=== PATIENT | male | born 1945 | race Caucasian/White ===

== ENCOUNTER 2017-04-03 19:39 | Emergency (ER) | payer MEDICARE ==
[2017-04-03] MEDS ORDERED: Sodium Chloride 0.9% 1,000 ML IV ONE (21:05)
[2017-04-03 21:25] LABS: BASO # 0.1 K/uL (0.0-0.2); BASO % 0.7 % (0.0-2.0); EOS # 0.5 K/uL (0.0-0.7); EOS % 6.6 % (0.0-4.0); HEMATOCRIT 41.1 % (35.0-51.0); LYMPH # 1.8 K/uL (1.0-4.3); LYMPH % 25.2 % (20.0-40.0); MEAN CELL VOLUME 85.2 fL (80.0-94.0); MEAN CORPUSCULAR HEMOGLOBIN 28.1 pg (27.0-31.0); MEAN PLATELET VOLUME 9.1 fL (7.2-11.7); MONO # 0.5 K/uL (0.0-0.8); MONO % 6.8 % (0.0-10.0); NRBC % 0.5 % (0.0-2.0); WHITE BLOOD COUNT 7.2 K/uL (4.8-10.8)
[2017-04-03 21:26] LABS: RBC URINE 350 /hpf (0-3); URINE BACTERIA RARE (<OCC); URINE BILIRUBIN NEGATIVE (NEGATIVE); URINE BLOOD 3+ (NEGATIVE); URINE COLOR Yellow (YELLOW); URINE GLUCOSE (UA) 2+ mg/dL (Normal); URINE KETONE NEGATIVE (NEGATIVE); URINE LEUKOCYTE ESTERASE NEG Leu/uL (Negative); URINE PROTEIN 2+ mg/dL (NEGATIVE); URINE UROBILINOGEN NORMAL mg/dL (0.2-1.0); WBC URINE 1 /hpf (0-5)
[2017-04-03 21:47] LABS: ALB/GLOB RATIO 1.4 (1.0-2.1); ALKALINE PHOSPHATASE 70 U/L (38-126); ALT/SGPT 56 U/L (21-72); AST/SGOT 60 U/L (17-59); BILIRUBIN,TOTAL 0.8 mg/dL (0.2-1.3); BLOOD UREA NITROGEN 29 mg/dL (9-20); CALCIUM 8.4 mg/dl (8.6-10.4); CARBON DIOXIDE 25 mmol/L (22-30); CHLORIDE 102 mmol/L (98-107); GFR AFRICAN-AMERICAN > 60; GLUCOSE,RANDOM 153 mg/dL (75-110); POTASSIUM 3.9 mmol/L (3.6-5.2); SODIUM 139 mmol/L (132-148); TOTAL PROTEIN 6.6 g/dL (6.3-8.3)
--- NOTE | 2017-04-03 22:32 | US ---
EXAM: US Scrotum EXAM DATE/TIME: 04/03/2017 9:06 PM CLINICAL HISTORY: 71 years old, male; Pain; Scrotum pain; Additional info: Right scrotal pain TECHNIQUE: Real-time ultrasound of the scrotum with color Doppler and image documentation. COMPARISON: There are no prior studies for comparison. FINDINGS: Right Right testicle measures approximately 4 x 2.3 x 2.5 cm. There is rete testis formation. There are no testicular masses. There is a small testicular cyst. There is expected intratesticular blood flow.There is a right hydrocele. Right epididymal head measures approximately 10 x 15 millimeters. There is a small epididymal head cyst. There is a 2.3 x 1.6 x 2.4 cm right epididymal cyst in the proximal body of the epididymis. Left There is a moderately large left hydrocele. Left testicle measures approximately 4.2 x 2.7 by 2.7 cm. There are no testicular masses There is expected intratesticular blood flow. There may be a small appendix testis. Left epididymal head measures 10 x 10 millimeters. There is a small epididymal head cysts. There is a small left varicocele IMPRESSION: Bilateral hydroceles left greater than right; moderately large right epididymal cyst; no torsion
--- NOTE | 2017-04-03 22:49 | C.PDOC ---
Time Seen by Provider: 04/03/17 20:51 Chief Complaint (Nursing): Male Genitourinary History Per: Patient, Family Onset/Duration Of Symptoms: Days (about 2 months), Gradual Current Symptoms Are (Timing): Worse Severity: Moderate Quality Of Discomfort: "Pain" Associated Symptoms: Urinary Symptoms Alleviating Factors: None Additional History Per: Prior Records Past Medical History Reviewed: Historical Data, Nursing Documentation, Vital Signs Vital Signs: Last Vital Signs Temp 98 F 04/03/17 20:32 Pulse 90 04/03/17 20:32 Resp 16 04/03/17 20:32 BP 180/87 H 04/03/17 20:32 Pulse Ox 98 04/03/17 20:32 - Medical History PMH: Arthritis (gout), Diabetes, HTN, Chronic Kidney Disease Family History: States: Unknown Family Hx - Social History Hx Tobacco Use: No Hx Alcohol Use: No Hx Substance Use: No - Immunization History Hx Tetanus Toxoid Vaccination: No Hx Influenza Vaccination: No Hx Pneumococcal Vaccination: No Review Of Systems Except As Marked, All Systems Reviewed And Found Negative. Constitutional: Negative for: Fever, Weakness Cardiovascular: Negative for: Chest Pain Respiratory: Negative for: Shortness of Breath Gastrointestinal: Negative for: Vomiting, Abdominal Pain Genitourinary: Positive for: Hematuria, Scrotal Pain Musculoskeletal: Negative for: Neck Pain, Back Pain Skin: Negative for: Rash Neurological: Negative for: Weakness, Numbness, Seizures, Altered Mental Status Physical Exam - Physical Exam Appears: Non-toxic, No Acute Distress Skin: Normal Color, Warm, Dry, No Rash Head: Atraumatic, Normacephalic Eye(s): bilateral: PERRL, EOMI Neck: Normal ROM, Supple Cardiovascular: Rhythm Regular Respiratory: Normal Breath Sounds, No Accessory Muscle Use Gastrointestinal/Abdominal: Soft, No Tenderness Back: No CVA Tenderness Male Genital: Testicular Tenderness (right), Scrotal Swelling Extremity: Normal ROM Neurological/Psych: Oriented x3, Normal Motor, Normal Sensation ED Course And Treatment - Laboratory Results Result Diagrams: 04/03/17 21:16 04/03/17 21:16 Interpretation Of Abnormal: Microscopic hematuria. Renal insufficiency. O2 Sat by Pulse Oximetry: 98 Pulse Ox Interpretation: Normal - CT Scan/US Testicular US Other Rad Studies (CT/US): Read By Radiologist, Radiology Report Reviewed CT/US Interpretation: IMPRESSION: Bilateral hydroceles left greater than right ; moderately large. right epididymal cyst; no torsion Disposition Counseled Patient/Family Regarding: Studies Performed, Diagnosis, Need For Followup, Rx Given - Disposition Referrals: Kyrie Dunn Jr., MD [Staff Provider] - Disposition: HOME/ ROUTINE Disposition Time: 22:51 Condition: STABLE Additional Instructions: Follow up with a Urologist within 1 week for further evaluation and treatment. Follow up with your primary doctor within 1 week to recheck your blood pressure. Return to the ER if you develop fever, abdominal pain, back pain, redness, worsening of symptoms or if you have any other concerns. Prescriptions: Acetaminophen [Tylenol Extra Strength] 2 tab PO Q6 PRN #30 tablet PRN Reason: Pain, Moderate (4-7) Ciprofloxacin [Cipro] 1 tab PO BID #14 tab Instructions: Hydrocele (ED) Forms: [facility] ([place]) Print Language: KAZAKH - Clinical Impression Clinical Impression: Hematuria, Cyst of epididymis determined by ultrasound, Hydrocele, Right testicular pain
[2017-04-03 23:06] VITALS: BP 164/70; PULSE 71; RESP 20; TEMP 98.2; O2SAT 99
[2017-04-03] MEDS ORDERED: Sodium Chloride 0.9% 1,000 ML ONE (23:07)
== END 2017-04-03 23:12 | disposition home or self-care (01) ==
LOC: C.ER 19:39
DX: N50.3 Cyst of epididymis (principal); N43.3 Hydrocele, unspecified; R31.9 Hematuria, unspecified; N50.811 Right testicular pain
CPT/HCPCS: 76870; 80053; 81001; 85025; 87086; 96360; 99285; J7040

== ENCOUNTER 2017-10-19 21:11 | Inpatient (IN) | payer MEDICARE ==
[2017-10-19 22:24] LABS: BASO # 0.1 K/uL (0.0-0.2); BASO % 1.2 % (0.0-2.0); EOS # 0.2 K/uL (0.0-0.7); EOS % 3.9 % (0.0-4.0); HEMOGLOBIN 13.1 g/dL (12.0-18.0); LYMPH # 1.7 K/uL (1.0-4.3); LYMPH % 29.1 % (20.0-40.0); MEAN CELL VOLUME 87.8 fL (80.0-94.0); MEAN CORPUSCULAR HEMOGLOBIN 28.8 pg (27.0-31.0); MEAN CORPUSCULAR HGB CONC 32.8 g/dL (33.0-37.0); MEAN PLATELET VOLUME 10.1 fL (7.2-11.7); MONO # 0.4 K/uL (0.0-0.8); MONO % 6.8 % (0.0-10.0); NEUT # 3.4 K/uL (1.8-7.0); NRBC % 0.1 % (0.0-2.0); RBC 4.56 Mil/uL (4.40-5.90); RED CELL DISTRIBUTION WIDTH 15.8 % (11.5-14.5); WHITE BLOOD COUNT 5.7 K/uL (4.8-10.8)
[2017-10-19 22:49] LABS: TROPONIN I 0.06 ng/mL (0.00-0.120)
[2017-10-19 22:52] LABS: ALB/GLOB RATIO 1.4 (1.0-2.1); CALCIUM 8.8 mg/dl (8.6-10.4)
--- NOTE | 2017-10-19 22:53 | C.PDOC ---
Time Seen by Provider: 10/19/17 21:41 Chief Complaint (Nursing): Dizziness/Lightheaded History Per: Patient, Family Onset/Duration Of Symptoms: Days (5) Current Symptoms Are (Timing): Still Present Current Symptoms: Drowsiness Possible Causative Factor(s): New Medications (Lyrica) Fall Associated With With Symptoms: No Severity: Moderate Additional History Per: Prior Records - Symptoms Of CVA Recent Head Trauma: No Past Medical History Reviewed: Historical Data, Nursing Documentation, Vital Signs Vital Signs: Last Vital Signs Temp 99.1 F 10/19/17 21:33 Pulse 84 10/19/17 21:33 Resp 18 10/19/17 21:33 BP 171/88 H 10/19/17 21:33 Pulse Ox 96 10/19/17 22:56 - Medical History PMH: Arthritis (gout), Diabetes (?), HTN, Chronic Kidney Disease Other PMH: Peripheral Neuropathy Surgical History: Cholecystectomy Family History: States: Unknown Family Hx - Social History Hx Tobacco Use: No Hx Alcohol Use: No Hx Substance Use: No - Immunization History Hx Tetanus Toxoid Vaccination: No Hx Influenza Vaccination: Yes Hx Pneumococcal Vaccination: Yes Review Of Systems Except As Marked, All Systems Reviewed And Found Negative. Constitutional: Positive for: Malaise. Negative for: Fever ENT: Negative for: Ear Pain Cardiovascular: Negative for: Chest Pain Respiratory: Negative for: Shortness of Breath Gastrointestinal: Negative for: Vomiting, Abdominal Pain Musculoskeletal: Negative for: Neck Pain Skin: Negative for: Rash Neurological: Positive for: Dizziness. Negative for: Weakness, Seizures Physical Exam - Physical Exam Appears: Non-toxic, No Acute Distress Skin: Normal Color, Warm, Dry, No Rash Head: Atraumatic, Normacephalic Eye(s): bilateral: PERRL, EOMI Oral Mucosa: Dry Neck: Normal ROM, Supple Cardiovascular: Rhythm Regular Respiratory: Normal Breath Sounds, No Accessory Muscle Use Gastrointestinal/Abdominal: Soft, No Tenderness Back: No CVA Tenderness Extremity: Normal ROM, No Pedal Edema, No Calf Tenderness Neurological/Psych: Oriented x3, Normal Speech, No Cerebellar Signs, Normal Motor, Normal Sensation ED Course And Treatment - Laboratory Results Result Diagrams: 10/19/17 22:21 10/19/17 22:21 Lab Interpretation: Abnormal Interpretation Of Abnormal: Hyperglycemia. Elevated BUN/Cr. ECG: Interpreted By Me, Viewed By Me ECG Rhythm: Sinus Rhythm, Nonspecific Changes ECG Interpretation: Abnormal Interpretation Of ECG: LVH with strain pattern. Rate From EC O2 Sat by Pulse Oximetry: 96 Pulse Ox Interpretation: Normal - CT Scan/US CT head Other Rad Studies (CT/US): Read By Radiologist, Radiology Report Reviewed CT/US Interpretation: IMPRESSION: 1. Mild cerebral and cerebellar atrophy. 2. Mild small vessel ischemic/degenerative changes. Progress Note: According to pt/his family, pt does not have h/o DM and is not on any diabetes medications at home. Progress - Interventions Interventions:: Observation, Intravenous fluid - Medications Administered Intravenous: Other (Insulin) - Patient Status Patient status: Partially improved - Continuity of Care Discussed patient case with:: Patient, Family-HIPPA compliant, ED Nurse, PMD - Patient Plan Patient Plan: Admission Disposition Discussed With : Cary Lyons Comment: She accepted pt on her service and gave admitting orders to the nurse. Doctor Will See Patient In The: Hospital Counseled Patient/Family Regarding: Studies Performed, Diagnosis - Disposition Disposition: HOSPITALIZED Disposition Time: 23:18 Condition: FAIR - Clinical Impression Clinical Impression: Hyperglycemia, Dehydration, Renal insufficiency, Adverse effects of medication , Drowsiness
[2017-10-19] MEDS ORDERED: Sodium Chloride 0.9% 1,000 ML IV ONE ×3 (22:55→23:40)
[2017-10-19] MEDS ORDERED: (Novolin R) Insulin Human Regular 100 units/ml vial IV STA (23:03)
[2017-10-19] MEDS ORDERED: (Novolin R) Insulin Human Regular 100 units/ml vial ONE (23:10)
[2017-10-19 23:22] LABS: URINE BACTERIA RARE (<OCC); URINE BILIRUBIN NEGATIVE (NEGATIVE); URINE BLOOD NEGATIVE (NEGATIVE); URINE CLARITY Clear (Clear); URINE COLOR Straw (YELLOW); URINE GLUCOSE (UA) 3+ mg/dL (Normal); URINE LEUKOCYTE ESTERASE NEG Leu/uL (Negative); URINE PROTEIN 2+ mg/dL (NEGATIVE); URINE UROBILINOGEN NORMAL mg/dL (0.2-1.0)
[2017-10-19 23:32] LABS: BARBITURATES, UR NEGATIVE (NEGATIVE); BENZODIAZEPINES, UR NEGATIVE (NEGATIVE); OPIATES, UR NEGATIVE (NEGATIVE); PHENCYCLIDINE, UR NEGATIVE (NEGATIVE)
[2017-10-20] MEDS ORDERED: Sodium Chloride 0.9% 2,000 ML IV ONE (00:05)
[2017-10-20] MEDS: (Novolog) Insulin Aspart, Recombinant 100 u/ml 10 ml vial SC SCH ×5 (00:10→21:54)
[2017-10-20] MEDS ORDERED: (Novolog) Insulin Aspart, Recombinant 100 u/ml 10 ml vial ONE ×2 (00:28→07:42)
[2017-10-20 06:21] LABS: CALCIUM 8.5 mg/dl (8.6-10.4)
[2017-10-20 06:30] LABS: INR 1.3; PROTHROMBIN TIME 13.9 SECONDS (9.7-12.2)
--- NOTE | 2017-10-20 08:16 | CT ---
PROCEDURE: CT HEAD WITHOUT CONTRAST. HISTORY: Dizziness x 5 days COMPARISON: None available. TECHNIQUE: Axial computed tomography images were obtained through the head/brain without intravenous contrast. Radiation dose: Total exam DLP = 829 mGy-cm. This CT exam was performed using one or more of the following dose reduction techniques: Automated exposure control, adjustment of the mA and/or kV according to patient size, and/or use of iterative reconstruction technique. FINDINGS: HEMORRHAGE: No intracranial hemorrhage. BRAIN: Mild cerebral and cerebellar atrophy. Scattered focal lucencies in the subcortical and periventricular white matter suggestive for chronic microvascular ischemic change. VENTRICLES: Unremarkable. No hydrocephalus. CALVARIUM: Unremarkable. PARANASAL SINUSES: Unremarkable as visualized. No significant inflammatory changes. MASTOID AIR CELLS: Unremarkable as visualized. No inflammatory changes. OTHER FINDINGS: Intracranial arterial calcifications. IMPRESSION: Mild cerebral and cerebellar atrophy. Chronic microvascular ischemic change. If symptoms persists, consider correlation with MRI. These findings were preliminarily reported at 10:43 p.m. on 10/19/[address] Kyrie Lagos from [facility].
--- NOTE | 2017-10-20 09:28 | RAD ---
HISTORY: Hyperglycemia COMPARISON: 02/07/2014 FINDINGS: LUNGS: No active pulmonary disease. PLEURA: No significant pleural effusion identified, no pneumothorax apparent. CARDIOVASCULAR: Normal. OSSEOUS STRUCTURES: No significant abnormalities. VISUALIZED UPPER ABDOMEN: Normal. OTHER FINDINGS: None. IMPRESSION: No active disease.
--- NOTE | 2017-10-20 14:17 | CP.PCM.PN ---
Subjective - Date & Time of Evaluation Date of Evaluation: 10/20/17 Time of Evaluation: 18:03 - Subjective Subjective: Pt reports feeling a lot olga states he was confused yesterday no chest pain no sob pt does reports his toes feel numb bl Objective - Vital Signs/Intake and Output Vital Signs (last 24 hours): Temp Pulse Resp BP Pulse Ox 98.2 F 80 20 167/91 H 94 L 10/20/17 08:10 10/20/17 12:17 10/20/17 08:10 10/20/17 11:28 10/20/17 08:10 Intake and Output: 10/20/17 10/20/17 06:59 18:59 Intake Total 2300 Output Total 300 Balance 2000 - Medications Medications: Current Medications Amlodipine Besylate (Norvasc) 10 mg PO DAILY [facility] Last Admin: 10/20/17 09:04 Dose: 10 mg Aspirin (Aspirin Chewable) 81 mg PO DAILY [facility] Last Admin: 10/20/17 09:14 Dose: 81 mg Carvedilol (Coreg) 25 mg PO BID [facility] Last Admin: 10/20/17 09:04 Dose: 25 mg Glimepiride (Amaryl) 4 mg PO BID [facility] Last Admin: 10/20/17 09:04 Dose: 4 mg Heparin Sodium (Porcine) (Heparin) 5,000 units SC Q8 [facility] Last Admin: 10/20/17 13:08 Dose: 5,000 units Hydralazine HCl (Apresoline) 50 mg PO Q8 [facility] Last Admin: 10/20/17 13:08 Dose: 50 mg Insulin Aspart (Novolog) 0 unit SC ACHS [facility] PRN Reason: Protocol Last Admin: 10/20/17 13:10 Dose: 3 units Pantoprazole Sodium (Protonix Inj) 40 mg IVP DAILY [facility] Last Admin: 10/20/17 09:04 Dose: 40 mg Sitagliptin Phosphate (Januvia) 25 mg PO DAILY [facility] Last Admin: 10/20/17 09:04 Dose: 25 mg - Labs Labs: 10/19/17 22:21 10/20/17 06:05 PT 13.9 SECONDS (9.7-12.2) H 10/20/17 06:05 INR 1.3 10/20/17 06:05 APTT 30 SECONDS (21-34) 10/20/17 06:05 - Constitutional Appears: Well, Non-toxic - Eye Exam Eye Exam: Normal appearance - ENT Exam ENT Exam: Mucous Membranes Moist - Respiratory Exam Respiratory Exam: Clear to Ausculation Bilateral - GI/Abdominal Exam GI & Abdominal Exam: Soft, Normal Bowel Sounds. absent: Mass - Neurological Exam Neurological Exam: Alert, Awake, Oriented x3 - Skin Skin Exam: Normal Color Assessment and Plan - Assessment and Plan (Free Text) Assessment: Bp; better today will adjust meds diabetes continue to adjust meds creat decreased from 1.9 to 1.5 after hydration ivf dced., eating well sugars down to 200 range numbness in toes ct head b12 level
--- NOTE | 2017-10-20 16:31 | CARD ---
APPROVED REPORT EKG Measurement Heart [id number] <Conclusion> Normal sinus rhythm Left axis deviation Left ventricular hypertrophy with repolarization abnormality Abnormal ECG
--- NOTE | 2017-10-20 18:08 | CP.PCM.HP ---
History of Present Illness - History of Present Illness History of Present Illness: cc; weakness HPI: PT is 71 year old male who was brought by the family due to feeling of weakness. Pt states he was feeling confused to the point he could not recognized his . Pt states he felt so weak he could not get up and that his feet felt numb. Pt states he felt the new medication Lyrica could have been causing the symptoms. Pt was found to have elevated BP and sugar in the 500 range in the ER. PHMx: HNT base line aic is 6.1 no tobaco no ethoh lives with family mom one year ago father also diseased Present on Admission - Present on Admission Any Indicators Present on Admission: No Review of Systems - Constitutional Constitutional: Fatigue, Malaise, Weakness. absent: Anorexia, Chills - EENT Eyes: absent: Blurred Vision, Discharge - Cardiovascular Cardiovascular: absent: Chest Pain, Dyspnea on Exertion, Edema - Respiratory Respiratory: absent: Cough, Pain on Inspiration - Genitourinary Genitourinary: absent: Change in Urinary Stream Past Patient History - Infectious Disease Hx of Infectious Diseases: None - Past Social History Smoking Status: Never Smoked - CARDIAC Hx Hypertension: Yes - PULMONARY Hx Respiratory Disorders: No - NEUROLOGICAL Hx Neurological Disorder: No - HEENT Hx HEENT Problems: No - RENAL Hx Chronic Kidney Disease: Yes - ENDOCRINE/METABOLIC Hx Endocrine Disorders: No - HEMATOLOGICAL/ONCOLOGICAL Hx Blood Disorders: No - INTEGUMENTARY Hx Dermatological Problems: No - MUSCULOSKELETAL/RHEUMATOLOGICAL Hx Falls: No - GASTROINTESTINAL Hx Gastrointestinal Disorders: No - GENITOURINARY/GYNECOLOGICAL Hx Genitourinary Disorders: No - PSYCHIATRIC Hx Substance Use: No - SURGICAL HISTORY Hx Cholecystectomy: Yes - ANESTHESIA Hx Anesthesia: Yes Hx Anesthesia Reactions: No Meds Home Medications: Home Medication List Medication Instructions Recorded Confirmed Type Aspirin [Aspirin Chewable] 81 mg PO DAILY chew 10/22/17 Rx Carvedilol [Coreg] 25 mg PO BID tab 10/22/17 Rx Glimepiride [amaRYL] 4 mg PO BID tab 10/22/17 Rx amLODIPine [Norvasc] 10 mg PO DAILY tab 10/22/17 Rx hydrALAZINE [Apresoline] 100 mg PO BID tab 10/22/17 Rx Allergies/Adverse Reactions: Allergies Allergy/AdvReac Type Severity Reaction Status Date / Time No Known Allergies Allergy Verified 10/19/17 21:36 Physical Exam - Eye Exam Eye Exam: Normal appearance - ENT Exam ENT Exam: Mucous Membranes Moist - Respiratory Exam Respiratory Exam: Clear to Auscultation Bilateral, NORMAL BREATHING PATTERN - Cardiovascular Exam Cardiovascular Exam: RRR, +S1, +S2. absent: JVD, Rubs - GI/Abdominal Exam GI & Abdominal Exam: Normal Bowel Sounds, Soft. absent: Mass - Neurological Exam Neurological exam: CN II-XII Intact Results - Vital Signs Recent Vital Signs: Last Vital Signs Temp 98.1 F 10/20/17 16:00 Pulse 78 10/20/17 16:00 Resp 20 10/20/17 16:00 BP 166/90 H 10/20/17 17:31 Pulse Ox 96 10/20/17 16:00 - Labs Result Diagrams: 10/19/17 22:21 10/21/17 07:52 Labs: Laboratory Results - last 24 hr 10/19/17 10/19/17 10/19/17 22:21 22:21 23:08 WBC 5.7 RBC 4.56 Hgb 13.1 Hct 40.0 MCV 87.8 D MCH 28.8 MCHC 32.8 L RDW 15.8 H Plt Count 103 L MPV 10.1 Neut % (Auto) 59.0 Lymph % (Auto) 29.1 [place] % (Auto) 6.8 Eos % (Auto) 3.9 Baso % (Auto) 1.2 Neut # (Auto) 3.4 Lymph # (Auto) 1.7 [place] # (Auto) 0.4 Eos # (Auto) 0.2 Baso # (Auto) 0.1 PT INR APTT Sodium 137 Potassium 4.2 Chloride 96 L Carbon Dioxide 25 Anion Gap 21 H BUN 41 H Creatinine 1.9 H Est GFR ( Amer) 42 Est GFR (Non-Af Amer) 35 POC Glucose (mg/dL) > 500 H* Random Glucose 587 H* D Hemoglobin A1c Calcium 8.8 Phosphorus Magnesium 1.9 Total Bilirubin 0.6 AST 50 ALT 53 Alkaline Phosphatase 147 H D Troponin I 0.0600 NT-Pro-B Natriuret Pep Total Protein 6.8 Albumin 4.0 Globulin 2.8 Albumin/Globulin Ratio 1.4 Urine Color Urine Clarity Urine pH Ur Specific [place] Urine Protein Urine Glucose (UA) Urine Ketones Urine Blood Urine Nitrate Urine Bilirubin Urine Urobilinogen Ur Leukocyte Esterase Urine WBC (Auto) Urine RBC (Auto) Urine Bacteria Urine Opiates Screen Urine Methadone Screen Ur Barbiturates Screen Ur Phencyclidine Scrn Ur Amphetamines Screen U Benzodiazepines Scrn U Oth Cocaine Metabols U Cannabinoids Screen 10/19/17 10/19/17 10/20/17 23:14 23:31 00:09 WBC RBC Hgb Hct MCV MCH MCHC RDW Plt Count MPV Neut % (Auto) Lymph % (Auto) [place] % (Auto) Eos % (Auto) Baso % (Auto) Neut # (Auto) Lymph # (Auto) [place] # (Auto) Eos # (Auto) Baso # (Auto) PT INR APTT Sodium Potassium Chloride Carbon Dioxide Anion Gap BUN Creatinine Est GFR ( Amer) Est GFR (Non-Af Amer) POC Glucose (mg/dL) 390 H Random Glucose Hemoglobin A1c Calcium Phosphorus Magnesium Total Bilirubin AST ALT Alkaline Phosphatase Troponin I NT-Pro-B Natriuret Pep Total Protein Albumin Globulin Albumin/Globulin Ratio Urine Color Straw Urine Clarity Clear Urine pH 6.0 Ur Specific [place] 1.016 Urine Protein 2+ H Urine Glucose (UA) 3+ H Urine Ketones Negative Urine Blood Negative Urine Nitrate Negative Urine Bilirubin Negative Urine Urobilinogen Normal Ur Leukocyte Esterase Neg Urine WBC (Auto) < 1 Urine RBC (Auto) 1 Urine Bacteria Rare Urine Opiates Screen Negative Urine Methadone Screen Negative Ur Barbiturates Screen Negative Ur Phencyclidine Scrn Negative Ur Amphetamines Screen Negative U Benzodiazepines Scrn Negative U Oth Cocaine Metabols Negative U Cannabinoids Screen Negative 10/20/17 10/20/17 10/20/17 04:15 04:24 04:24 WBC RBC Hgb Hct MCV MCH MCHC RDW Plt Count MPV Neut % (Auto) Lymph % (Auto) [place] % (Auto) Eos % (Auto) Baso % (Auto) Neut # (Auto) Lymph # (Auto) [place] # (Auto) Eos # (Auto) Baso # (Auto) PT INR APTT Sodium Potassium Chloride Carbon Dioxide Anion Gap BUN Creatinine Est GFR ( Amer) Est GFR (Non-Af Amer) POC Glucose (mg/dL) 292 H Random Glucose Hemoglobin A1c 9.8 H Calcium Phosphorus 3.5 Magnesium 1.7 Total Bilirubin AST ALT Alkaline Phosphatase Troponin I NT-Pro-B Natriuret Pep 879 Total Protein Albumin Globulin Albumin/Globulin Ratio Urine Color Urine Clarity Urine pH Ur Specific [place] Urine Protein Urine Glucose (UA) Urine Ketones Urine Blood Urine Nitrate Urine Bilirubin Urine Urobilinogen Ur Leukocyte Esterase Urine WBC (Auto) Urine RBC (Auto) Urine Bacteria Urine Opiates Screen Urine Methadone Screen Ur Barbiturates Screen Ur Phencyclidine Scrn Ur Amphetamines Screen U Benzodiazepines Scrn U Oth Cocaine Metabols U Cannabinoids Screen 10/20/17 10/20/17 10/20/17 06:05 06:05 07:33 WBC RBC Hgb Hct MCV MCH MCHC RDW Plt Count MPV Neut % (Auto) Lymph % (Auto) [place] % (Auto) Eos % (Auto) Baso % (Auto) Neut # (Auto) Lymph # (Auto) [place] # (Auto) Eos # (Auto) Baso # (Auto) PT 13.9 H INR 1.3 APTT 30 Sodium 142 Potassium 3.7 Chloride 104 Carbon Dioxide 26 Anion Gap 15 BUN 33 H Creatinine 1.5 Est GFR ( Amer) 56 Est GFR (Non-Af Amer) 46 POC Glucose (mg/dL) 275 H Random Glucose 236 H Hemoglobin A1c Calcium 8.5 L Phosphorus Magnesium Total Bilirubin AST ALT Alkaline Phosphatase Troponin I NT-Pro-B Natriuret Pep Total Protein Albumin Globulin Albumin/Globulin Ratio Urine Color Urine Clarity Urine pH Ur Specific [place] Urine Protein Urine Glucose (UA) Urine Ketones Urine Blood Urine Nitrate Urine Bilirubin Urine Urobilinogen Ur Leukocyte Esterase Urine WBC (Auto) Urine RBC (Auto) Urine Bacteria Urine Opiates Screen Urine Methadone Screen Ur Barbiturates Screen Ur Phencyclidine Scrn Ur Amphetamines Screen U Benzodiazepines Scrn U Oth Cocaine Metabols U Cannabinoids Screen 10/20/17 10/20/17 11:51 16:32 WBC RBC Hgb Hct MCV MCH MCHC RDW Plt Count MPV Neut % (Auto) Lymph % (Auto) [place] % (Auto) Eos % (Auto) Baso % (Auto) Neut # (Auto) Lymph # (Auto) [place] # (Auto) Eos # (Auto) Baso # (Auto) PT INR APTT Sodium Potassium Chloride Carbon Dioxide Anion Gap BUN Creatinine Est GFR ( Amer) Est GFR (Non-Af Amer) POC Glucose (mg/dL) 281 H 203 H Random Glucose Hemoglobin A1c Calcium Phosphorus Magnesium Total Bilirubin AST ALT Alkaline Phosphatase Troponin I NT-Pro-B Natriuret Pep Total Protein Albumin Globulin Albumin/Globulin Ratio Urine Color Urine Clarity Urine pH Ur Specific [place] Urine Protein Urine Glucose (UA) Urine Ketones Urine Blood Urine Nitrate Urine Bilirubin Urine Urobilinogen Ur Leukocyte Esterase Urine WBC (Auto) Urine RBC (Auto) Urine Bacteria Urine Opiates Screen Urine Methadone Screen Ur Barbiturates Screen Ur Phencyclidine Scrn Ur Amphetamines Screen U Benzodiazepines Scrn U Oth Cocaine Metabols U Cannabinoids Screen Assessment & Plan - Assessment and Plan (Free Text) Assessment: Dehydration; creat 1.9 pre renal azotemia uncontrolled bp hyperglycemia: new onset diabetes prior Hgaic 6.1 mental stuts changes Hydrate ajust bp meds add oral agents follow up clerk consult b12 level
--- NOTE | 2017-10-20 18:54 | CT ---
PROCEDURE: CT HEAD WITHOUT CONTRAST. HISTORY: Leg numbness COMPARISON: Comparison made with prior CT scan brain dated 10/19/2017. TECHNIQUE: Axial computed tomography images were obtained through the head/brain without intravenous contrast. Radiation dose: Total exam DLP = 829.95 mGy-cm. This CT exam was performed using one or more of the following dose reduction techniques: Automated exposure control, adjustment of the mA and/or kV according to patient size, and/or use of iterative reconstruction technique. FINDINGS: HEMORRHAGE: No acute parenchymal, subarachnoid or extra-axial hemorrhage. BRAIN: Mild diffuse/confluent chronic periventricular white matter ischemic changes seen extending peripherally into the deep white matter both cerebral hemispheres. . There are a few small chronic appearing bilateral basal nuclei lacunar type infarcts. No obvious parenchymal nor extra-axial mass or collection seen on this noncontrast study. Moderate generalized volume loss. Minor vascular calcifications both carotid siphons VENTRICLES: No obstructive hydrocephalus. CALVARIUM: Unremarkable. PARANASAL SINUSES: Unremarkable as visualized. No significant inflammatory changes. MASTOID AIR CELLS: Unremarkable as visualized. No inflammatory changes. OTHER FINDINGS: Orbits and contents unremarkable IMPRESSION: No acute intracranial hemorrhage. Mild chronic white matter ischemic changes with scattered chronic bilateral basal nuclei lacunar type infarcts. Note that the possibility of a small hyperacute infarct cannot be excluded. Moderate generalized volume loss.
[2017-10-21 08:24] LABS: CALCIUM 8.6 mg/dl (8.6-10.4)
[2017-10-21] MEDS: (Novolog) Insulin Aspart, Recombinant 100 u/ml 10 ml vial SC SCH ×4 (08:28→21:59)
--- NOTE | 2017-10-21 16:55 | CP.PCM.PN ---
Subjective - Date & Time of Evaluation Date of Evaluation: 10/21/17 Time of Evaluation: 16:55 - Subjective Subjective: PT FEELS BETTER DOES CO OF HEADACHE , WORSE AT NIGHT NO CHEST PAIN OR SOB Objective - Vital Signs/Intake and Output Vital Signs (last 24 hours): Temp Pulse Resp BP Pulse Ox 97.8 F 81 20 162/82 H 99 10/21/17 15:35 10/21/17 15:35 10/21/17 15:35 10/21/17 15:35 10/21/17 15:35 Intake and Output: 10/21/17 10/21/17 06:59 18:59 Intake Total 240 Output Total 1650 Balance -1410 - Medications Medications: Current Medications Acetaminophen/Butalbital/Caffeine (Fioricet) 1 tab PO Q6 [facility] Amlodipine Besylate (Norvasc) 10 mg PO DAILY [facility] Last Admin: 10/21/17 09:24 Dose: 10 mg Aspirin (Aspirin Chewable) 81 mg PO DAILY [facility] Last Admin: 10/21/17 09:22 Dose: 81 mg Carvedilol (Coreg) 25 mg PO BID [facility] Last Admin: 10/21/17 09:22 Dose: 25 mg Glimepiride (Amaryl) 4 mg PO BID [facility] Last Admin: 10/21/17 09:23 Dose: 4 mg Heparin Sodium (Porcine) (Heparin) 5,000 units SC Q8 [facility] Last Admin: 10/21/17 16:02 Dose: 5,000 units Hydralazine HCl (Apresoline) 100 mg PO BID [facility] Insulin Aspart (Novolog) 0 unit SC ACHS [facility] PRN Reason: Protocol Last Admin: 10/21/17 12:13 Dose: 3 units Metformin HCl (Glucophage Xr) 500 mg PO QD7 [facility] Pantoprazole Sodium (Protonix Ec Tab) 40 mg PO DAILY [facility] Sitagliptin Phosphate (Januvia) 25 mg PO DAILY [facility] Last Admin: 10/21/17 09:22 Dose: 25 mg - Labs Labs: 10/19/17 22:21 10/21/17 07:52 PT 13.9 SECONDS (9.7-12.2) H 10/20/17 06:05 INR 1.3 10/20/17 06:05 APTT 30 SECONDS (21-34) 10/20/17 06:05 - Constitutional Appears: Non-toxic - Eye Exam Eye Exam: Normal appearance - ENT Exam ENT Exam: Mucous Membranes Moist - Cardiovascular Exam Cardiovascular Exam: REGULAR RHYTHM, RRR, +S1, +S2. absent: JVD, Rubs Assessment and Plan - Assessment and Plan (Free Text) Assessment: HTN MADE HYDRALAZINE bid for better compliance sugars better ; adjusted meds will review ct of head dc likely tomorrow.
[2017-10-21] MEDS: Apap-Butalbital-Caffeine 325-50-40mg Tab PO SCH (17:52)
[2017-10-22] MEDS: Apap-Butalbital-Caffeine 325-50-40mg Tab PO SCH ×4 (00:10→17:17)
[2017-10-22] MEDS: (Novolog) Insulin Aspart, Recombinant 100 u/ml 10 ml vial SC SCH ×3 (08:29→17:18)
[2017-10-22] MEDS: Pantoprazole 40 mg EC Tab PO SCH ×2 (10:00→11:18)
[2017-10-22] MEDS ORDERED: Gadodiamide 287 mg/ml 20 ml IV ONE (10:35)
--- NOTE | 2017-10-22 14:09 | MRI ---
PROCEDURE: MRI brain dated 02/21/2018 HISTORY: abnormal ct of head and ho mental status changes COMPARISON: None. TECHNIQUE: Multiplanar, multisequence MR images of the brain were obtained with and without intravenous contrast enhancement. FINDINGS: HEMORRHAGE: No acute parenchymal, subarachnoid nor extra-axial hemorrhage. No evidence of hemosiderin deposition identified on gradient echo weighted sequence. DWI: No evidence of an acute or early subacute infarction seen on diffusion imaging. BRAIN PARENCHYMA: Minimal chronic periventricular white matter ischemic changes. Moderate generalized volume loss ENHANCEMENT: No enhancing parenchymal nor extra-axial masses or collections. No evidence of abnormal meningeal enhancement. VENTRICLES: No obstructive hydrocephalus. CRANIUM: Unremarkable. ORBITS: Orbits and contents grossly unremarkable. PARANASAL SINUSES/MASTOIDS: Paranasal sinuses well-developed and currently well-aerated. VASCULAR SYSTEM: Visualized major vascular flow voids at skull base patent. OTHER FINDINGS: None . IMPRESSION: No acute intracranial hemorrhage or infarction. Minor chronic periventricular white matter ischemic changes. . Moderate generalized volume loss. No enhancing lesions.
[2017-10-22 15:55] VITALS: PULSE 76; RESP 18; TEMP 97.9; O2SAT 98
--- NOTE | 2017-10-22 16:00 | CP.PCM.DIS ---
Provider - Provider Date of Admission: 10/19/17 23:22 Attending physician: Cary Lyons MD Time Spent in preparation of Discharge (in minutes): 30 Hospital Course - Lab Results Lab Results: Most Recent Lab Values WBC 5.7 K/uL (4.8-10.8) 10/19/17 22:21 RBC 4.56 Mil/uL (4.40-5.90) 10/19/17 22:21 Hgb 13.1 g/dL (12.0-18.0) 10/19/17 22:21 Hct 40.0 % (35.0-51.0) 10/19/17 22:21 MCV 87.8 fL (80.0-94.0) D 10/19/17 22:21 MCH 28.8 pg (27.0-31.0) 10/19/17 22:21 MCHC 32.8 g/dL (33.0-37.0) L 10/19/17 22:21 RDW 15.8 % (11.5-14.5) H 10/19/17 22:21 Plt Count 103 K/uL (130-400) L 10/19/17 22:21 MPV 10.1 fL (7.2-11.7) 10/19/17 22:21 Neut % (Auto) 59.0 % (50.0-75.0) 10/19/17 22:21 Lymph % (Auto) 29.1 % (20.0-40.0) 10/19/17 22:21 [place] % (Auto) 6.8 % (0.0-10.0) 10/19/17 22:21 Eos % (Auto) 3.9 % (0.0-4.0) 10/19/17 22:21 Baso % (Auto) 1.2 % (0.0-2.0) 10/19/17 22:21 Neut # (Auto) 3.4 K/uL (1.8-7.0) 10/19/17 22:21 Lymph # (Auto) 1.7 K/uL (1.0-4.3) 10/19/17 22:21 [place] # (Auto) 0.4 K/uL (0.0-0.8) 10/19/17 22:21 Eos # (Auto) 0.2 K/uL (0.0-0.7) 10/19/17 22:21 Baso # (Auto) 0.1 K/uL (0.0-0.2) 10/19/17 22:21 PT 13.9 SECONDS (9.7-12.2) H 10/20/17 06:05 INR 1.3 10/20/17 06:05 APTT 30 SECONDS (21-34) 10/20/17 06:05 Sodium 138 mmol/L (132-148) 10/21/17 07:52 Potassium 4.2 mmol/L (3.6-5.2) 10/21/17 07:52 Chloride 101 mmol/L (98-107) 10/21/17 07:52 Carbon Dioxide 21 mmol/L (22-30) L 10/21/17 07:52 Anion Gap 20 (10-20) 10/21/17 07:52 BUN 32 mg/dL (9-20) H 10/21/17 07:52 Creatinine 1.5 mg/dL (0.8-1.5) 10/21/17 07:52 Est GFR ( Amer) 56 10/21/17 07:52 Est GFR (Non-Af Amer) 46 10/21/17 07:52 POC Glucose (mg/dL) 237 mg/dL (65-110) H 10/22/17 11:59 Random Glucose 293 mg/dL (75-110) H 10/21/17 07:52 Hemoglobin A1c 9.9 % (4.2-6.5) H 10/21/17 07:52 Calcium 8.6 mg/dl (8.6-10.4) 10/21/17 07:52 Phosphorus 3.5 mg/dL (2.5-4.5) 10/20/17 04:24 Magnesium 1.7 mg/dL (1.6-2.3) 10/20/17 04:24 Total Bilirubin 0.6 mg/dL (0.2-1.3) 10/19/17 22:21 AST 50 U/L (17-59) 10/19/17 22:21 ALT 53 U/L (21-72) 10/19/17 22:21 Alkaline Phosphatase 147 U/L (38-126) H D 10/19/17 22:21 Troponin I 0.0600 ng/mL (0.00-0.120) 10/19/17 22:21 NT-Pro-B Natriuret Pep 879 pg/mL (0-900) 10/20/17 04:24 Total Protein 6.8 g/dL (6.3-8.3) 10/19/17 22:21 Albumin 4.0 g/dL (3.5-5.0) 10/19/17 22:21 Globulin 2.8 gm/dL (2.2-3.9) 10/19/17 22:21 Albumin/Globulin Ratio 1.4 (1.0-2.1) 10/19/17 22:21 Vitamin B12 366 pg/mL (239-931) 10/21/17 07:52 Urine Color Straw (YELLOW) 10/19/17 23:31 Urine Clarity Clear (Clear) 10/19/17 23:31 Urine pH 6.0 (5.0-8.0) 10/19/17 23:31 Ur Specific [place] 1.016 (1.003-1.030) 10/19/17 23:31 Urine Protein 2+ mg/dL (NEGATIVE) H 10/19/17 23:31 Urine Glucose (UA) 3+ mg/dL (Normal) H 10/19/17 23:31 Urine Ketones Negative mg/dL (NEGATIVE) 10/19/17 23:31 Urine Blood Negative (NEGATIVE) 10/19/17 23:31 Urine Nitrate Negative (NEGATIVE) 10/19/17 23:31 Urine Bilirubin Negative (NEGATIVE) 10/19/17 23:31 Urine Urobilinogen Normal mg/dL (0.2-1.0) 10/19/17 23:31 Ur Leukocyte Esterase Neg [place]/uL (Negative) 10/19/17 23:31 Urine WBC (Auto) < 1 /hpf (0-5) 10/19/17 23:31 Urine RBC (Auto) 1 /hpf (0-3) 10/19/17 23:31 Urine Bacteria Rare (<OCC) 10/19/17 23:31 Urine Opiates Screen Negative (NEGATIVE) 10/19/17 23:14 Urine Methadone Screen Negative (NEGATIVE) 10/19/17 23:14 Ur Barbiturates Screen Negative (NEGATIVE) 10/19/17 23:14 Ur Phencyclidine Scrn Negative (NEGATIVE) 10/19/17 23:14 Ur Amphetamines Screen Negative (NEGATIVE) 10/19/17 23:14 U Benzodiazepines Scrn Negative (NEGATIVE) 10/19/17 23:14 U Oth Cocaine Metabols Negative (NEGATIVE) 10/19/17 23:14 U Cannabinoids Screen Negative (NEGATIVE) 10/19/17 23:14 - Hospital Course Hospital Course: Pt admited with elevated sugar, creast 1.9 and after epidode of confussion pt hydrated bp meds changed treated for new onse diabetes prior Hgaic was 6.1 pt had mri of brain no cva Discharge Exam - Eye Exam Eye Exam: Normal appearance - ENT Exam ENT Exam: Mucous Membranes Moist - Respiratory Exam Respiratory Exam: Clear to PA & Lateral - Cardiovascular Exam Cardiovascular Exam: RRR. absent: JVD, +S1, +S2 - GI/Abdominal Exam GI & Abdominal Exam: Normal Bowel Sounds. absent: Mass Discharge Plan - Follow Up Plan Condition: FAIR
[2017-10-22 17:18] VITALS: BP 130/68
== END 2017-10-22 17:39 | disposition home or self-care (01) | DRG 639 ==
LOC: C.ER 21:11 → C.9E 23:22 → C.6T 10-20 08:04
PROVIDERS: ADMIT Internal Medicine; ATTEND Internal Medicine
DX: E11.65 Type 2 diabetes mellitus with hyperglycemia (principal); E11.22 Type 2 diabetes mellitus with diabetic chronic kidney disease; E86.0 Dehydration; M10.9 Gout, unspecified; I12.9 Hypertensive chronic kidney disease with stage 1 through stage 4 chronic kidney disease, or unspecified chronic kidney disease; N18.9 Chronic kidney disease, unspecified; Z90.49 Acquired absence of other specified parts of digestive tract